=== PATIENT | female | born 1945 | race Caucasian/White ===

== ENCOUNTER → 2019-04-22 | Outpatient (CLI) | payer OTHER, MEDICARE ==
[~2019-04-22] VITALS: Ht 162.6 cm; Wt 72.6 kg
[~2019-04-22] MED LIST: ASPIR 8181 MG PO; CLONIDINE HCL0.1 MG PO; HYDROCHLOROTHIA25 M2 PO; LOPRESSOR100 M1 PO; NORVASC5 MG PO; PROBIOTIC1 EAC1 PO; PROTONIX40 M1 PO; VITAMIN D2000 UNIT PO; ZOCOR20 MG PO
--- NOTE | 2019-04-23 16:06 | PATH ---
[facility] [address] [place] [address] PATHOLOGY RPT PROCEDURE Name: CARSON SMITH Room #: REG [facility] M.R.#: [id number] ������������������ Admission: 04/22/19 ������������������ Date of : 41 Discharge: Report #: [id number] Path Case #: [id number] [facility] Accession Number: [id number] . 01 Material submitted: . PART A: colon - RANDOM BX RIGHT COLON. Modifiers: right PART B: colon - RANDOM BX LEFT COLON. Modifiers: left . 01 Clinical history: . Pre-OP DX: Hx polyps, abdominal pain, diarrhea Post-OP DX: AVM, hemorrhoids Rule out microscopic colitis . 02 Diagnosis: A. Large intestine mucosa, random right colon, endoscopic biopsy: - Mild active colitis. - Negative for microscopic colitis. - Negative for dysplasia or malignancy. . B. Large intestine mucosa, left colon, R/O microscopic colitis, endoscopic biopsy: - Mild acute colitis associated with lamina propria hemorrhage and reactive changes (please see comment). - Negative for features of microscopic colitis. - Negative for dysplasia or malignancy. (IUV:brian; 04/23/2019) QMS 04/23/2019 1457 Local . 02 Comment: Examination of the right and left colon biopsy tissues shows focal acute cryptitis. The left colon biopsy tissue in addition shows lamina propria hemorrhage as well as subtle lamina propria fibrosis. Intraepithelial lymphocytosis, as well as marked thickening of subepithelial collagen layer are not appreciated. The differential diagnosis for the right and left colon biopsy tissues includes diverticulitis, medication-induced colitis, resolving ischemic colitis (especially within the left colon biopsy tissue), early to mild inflammatory bowel disease as well as resolving episode of acute colitis. Clinical correlation is suggested. (IUV:brian; 04/23/2019) . 02 Electronically signed: . Essie Zamora MD, Pathologist NPI- [id number] . 01 Gross description: . A. Received in formalin labeled "Carson Smith kam BX right colon," are 5 segments of fernando soft tissue measuring 1.3 x 0.9 x 0.2 [place] [address] PATHOLOGY RPT PROCEDURE Name: CARSON SMITH Room #: REG CLI M.Genny.#: [id number] ������������������ Admission: 04/22/19 ������������������ Date of : 41 Discharge: Report #: [id number] Path Case #: [id number] aggregate dimensions and ranging from 0.4 to 0.5 cm in maximum dimension. The specimen is submitted entirely in cassette A1. . B. Received in formalin labeled "Carson Smith, random BX left colon," are 5 segments of fernando soft tissue measuring 1.5 x 1.0 x 0.2 cm in aggregate dimensions and ranging from 0.3 to 0.7 cm in maximum dimension. The specimen is submitted entirely in cassette B1. (TSD; 04/22/2019) TOB/TOB 04/22/2019 1753 Local . 02 Pathologist provided ICD-10: K52.9, K92.2 . 02 CPT . 248275, 956209 Specimen Comment: A courtesy copy of this report has been sent to Specimen Comment: [phone], . Specimen Comment: Report sent to / DR ALVARADO Performed at: [address], [place] [id number] MD Tomasz Handley MD Phone: [phone] Performed at: [address] [id number] MD Essie Zamora MD Phone: [phone]
== END | disposition home or self-care (01) ==
LOC: GI 09:44
DX: K52.9 Noninfective gastroenteritis and colitis, unspecified (principal); K55.20 Angiodysplasia of colon without hemorrhage; K64.8 Other hemorrhoids; K92.2 Gastrointestinal hemorrhage, unspecified; I10 Essential (primary) hypertension; E78.00 Pure hypercholesterolemia, unspecified; K21.9 Gastro-esophageal reflux disease without esophagitis; Z86.010 Personal history of colon polyps; Z90.710 Acquired absence of both cervix and uterus; Z98.41 Cataract extraction status, right eye; Z98.42 Cataract extraction status, left eye; Z79.899 Other long term (current) drug therapy; Z98.890 Other specified postprocedural states; Z85.828 Personal history of other malignant neoplasm of skin
CPT/HCPCS: 62110; 62900